=== PATIENT | male | born 1965 | race Caucasian/White ===

== ENCOUNTER 2017-12-13 10:33 | Outpatient (CLI) | payer MEDICAID ==
[2017-12-13 17:47] LABS: BASOPHILS % (AUTO) 0.5 %; EOSINOPHILS # (AUTO) 0.1 10^3/uL (0.0-0.7); EOSINOPHILS % (AUTO) 1.1 %; HGB - HEMOGLOBIN 14.4 g/dL (14.0-18.0); LYMPHOCYTES # (AUTO) 1.3 10^3/uL (1.5-3.5); LYMPHOCYTES % (AUTO) 26.2 %; MEAN CORPUSCULAR HEMOGLOBIN 33.8 pg (27.0-31.0); MEAN CORPUSCULAR HGB CONC 34.1 g/dL (32.0-36.0); MEAN CORPUSCULAR VOLUME 99.2 fL (80.0-94.0); MEAN PLATELET VOLUME 8.5 fL (7.4-11.4); MONOCYTES # (AUTO) 0.4 10^3/uL (0.0-1.0); NEUTROPHILS # (AUTO) 3.1 10^3/uL (1.5-6.6); NEUTROPHILS % (AUTO) 63.2 %; PLT - PLATELET COUNT 264 10^3/uL (130-450); RED BLOOD COUNT 4.26 10^6/uL (4.70-6.10); RED CELL DISTRIBUTION WIDTH 13.8 % (12.0-15.0); WHITE BLOOD COUNT 4.8 x10^3/uL (4.8-10.8)
[2017-12-13 18:35] LABS: ALBUMIN 4.5 g/dL (3.2-5.5); ALBUMIN/GLOBULIN RATIO 1.4 (1.0-2.2); ALKALINE PHOSPHATASE 52 IU/L (42-121); ALT ALANINE AMINOTRANSFERASE 44 IU/L (10-60); AST ASPARTATE AMINOTRANSFERASE 31 IU/L (10-42); BUN - BLOOD UREA NITROGEN 15 mg/dL (6-20); CALCIUM 9.4 mg/dL (8.5-10.3); CARBON DIOXIDE - CO2 26 mmol/L (21-32); CHLORIDE 102 mmol/L (101-111); CHOL/HDL RATIO 3.3 (<5.0); CHOLESTEROL 242 mg/dL; CREATININE 0.9 mg/dL (0.6-1.2); GFR - MDRD 89 (>89); GLUCOSE 107 mg/dL (70-100); HDL CHOLESTEROL 73 mg/dL; LDL CHOLESTEROL,CALCULATED 154 mg/dL; LDL/HDL RATIO 2.1 (<3.6); SODIUM 138 mmol/L (135-145); TOTAL PROTEIN 7.7 g/dL (6.7-8.2); VLDL CHOLESTEROL 15 mg/dL
== END 2017-12-13 10:34 | disposition home or self-care (01) ==
LOC: LAB.F 10:33
PROVIDERS: ATTEND Family Medicine
DX: F10.20 Alcohol dependence, uncomplicated (principal); R07.9 Chest pain, unspecified
CPT/HCPCS: 36415; 80053; 80061; 83721; 84443; 85025

== ENCOUNTER 2018-04-10 15:58 | Outpatient (CLI) | payer MEDICAID ==
--- NOTE | 2018-04-10 20:20 | Ultrasound Report ---
Reason: KNEE PAIN,RIGHT Procedure Date: 04/10/2018 Accession Number: [id number] / [id number] Procedure: US - Ext Limited Non Vascular CPT Code: FULL RESULT: EXAM: RIGHT UPPER EXTREMITY ULTRASOUND - LIMITED EXAM DATE: 04/10/2018 05:21 PM. CLINICAL HISTORY: Right knee pain and swelling. COMPARISON: None. TECHNIQUE: Real-time scanning was performed with static images and cine loops obtained. FINDINGS: Large anechoic fluid collection lateral, anterior, and medial to the knee, measuring up to 1.8 cm thick. IMPRESSION: Large anechoic fluid collection lateral, anterior, and medial to the knee, suspect representing a large knee effusion. RADIA
== END 2018-04-10 15:59 | disposition home or self-care (01) ==
LOC: DI 15:58
PROVIDERS: ATTEND Family Medicine
DX: M25.561 Pain in right knee (principal); M25.461 Effusion, right knee
CPT/HCPCS: 76882

== ENCOUNTER 2018-04-11 14:21 | Outpatient (CLI) | payer MEDICAID ==
--- NOTE | 2018-04-11 14:53 | XRAY Report ---
Reason: ELBOW JOINT PAIN,LEFT,KNEE PAIN RIGHT Procedure Date: 04/11/2018 Accession Number: [id number] / [id number] Procedure: XR - Knee 3 View RT CPT Code: FULL RESULT: EXAM: RIGHT KNEE RADIOGRAPHY EXAM DATE: 04/11/2018 02:42 PM. CLINICAL HISTORY: Acute right knee pain and swelling status post trauma. COMPARISON: None. TECHNIQUE: 3 views. FINDINGS: Bones: Normal bone mineralization. No fractures or bone lesions. Joints: Moderate suprapatellar right knee joint effusion. No subluxation. No significant degenerative changes. Soft Tissues: Soft tissue swelling anterior to the patella and patellar tendon. IMPRESSION: 1. Anterior right knee soft tissue swelling with no fracture or subluxation. 2. Moderate right knee joint effusion. RADIA
--- NOTE | 2018-04-11 14:57 | XRAY Report ---
Reason: ELBOW JOINT PAIN,LEFT,KNEE PAIN RIGHT Procedure Date: 04/11/2018 Accession Number: [id number] / [id number] Procedure: XR - Elbow 2 View LT CPT Code: FULL RESULT: EXAM: LEFT ELBOW RADIOGRAPHY EXAM DATE: 04/11/2018 02:42 PM. CLINICAL HISTORY: Acute left elbow pain status post trauma. COMPARISON: None. TECHNIQUE: 2 views. FINDINGS: Bones: Normal bone mineralization. No fractures or bone lesions. Joints: Normal. No effusion. No subluxation. Soft Tissues: Normal. No soft tissue swelling. IMPRESSION: Normal left elbow radiography. RADIA
== END 2018-04-11 14:22 | disposition home or self-care (01) ==
LOC: DI 14:21
PROVIDERS: ATTEND Family Medicine
DX: M25.561 Pain in right knee (principal); M25.461 Effusion, right knee; M25.522 Pain in left elbow

== ENCOUNTER 2018-06-09 13:57 | Outpatient (CLI) | payer MEDICAID ==
[2018-06-09 18:20] LABS: ALBUMIN 4.7 g/dL (3.2-5.5); ALBUMIN/GLOBULIN RATIO 1.7 (1.0-2.2); CALCIUM 9.2 mg/dL (8.5-10.3); CREATININE 0.9 mg/dL (0.6-1.2); TOTAL PROTEIN 7.4 g/dL (6.7-8.2)
[2018-06-09 19:07] LABS: HB2 TOTAL 15.8 g/dL; HEMOGLOBIN A1C 0.55 g/dL; HEMOGLOBIN A1C % 5.3 % (4.6-6.2)
== END 2018-06-09 13:58 | disposition home or self-care (01) ==
LOC: LAB.F 13:57
PROVIDERS: ATTEND Internal Medicine
DX: R73.01 Impaired fasting glucose (principal)
CPT/HCPCS: 36415; 80053; 83036

== ENCOUNTER 2019-05-19 07:57 | Outpatient (CLI) | payer MEDICAID ==
--- NOTE | 2019-05-19 10:15 | MRI Report ---
Reason: KNEE PAIN RT Procedure Date: 05/19/2019 Accession Number: [id number] / [id number] Procedure: MRI - Knee RT W/O CPT Code: Final Report FULL RESULT: EXAM: RIGHT KNEE MRI WITHOUT CONTRAST EXAM DATE: 05/19/2019 08:44 AM. CLINICAL HISTORY: Right knee pain medially. COMPARISON: 04/11/2018 radiographs. TECHNIQUE: Multiplanar, multisequence T1-weighted and fluid-sensitive sequences of the knee without contrast. Other: None. FINDINGS: Bones: Minimal tricompartmental osteophytes are present. No marrow edema. Reactive periarticular marrow edema is in the central patella. Articular Cartilage: Severe cartilage thinning is at the lateral patellar facet. There is mild cartilage thinning and surface irregularity at the medial patella. Moderate cartilage thinning and surface irregularity is at the lateral portion of the trochlea. Medial Meniscus: The medial meniscus is intact. Lateral Meniscus: The lateral meniscus is intact. Cruciate Ligaments: The anterior and posterior cruciate ligaments are intact. Collateral Ligaments: The medial collateral and lateral collateral ligamentous structures are intact. Tendons: The quadriceps, patellar, semimembranosus, and popliteus tendons are unremarkable. Musculature: No edema or fatty atrophy. Other: There is a mild knee effusion. No popliteal cyst. No loose bodies. The medial and lateral retinacula are intact. Prepatellar subcutaneous edema is present. Edema is in Hoffa's fat pad. IMPRESSION: Mild osteoarthritis. RADIA
== END 2019-05-19 07:58 | disposition home or self-care (01) ==
LOC: DI 07:57
PROVIDERS: ATTEND Orthopaedic Surgery Sports Medicine
DX: M17.11 Unilateral primary osteoarthritis, right knee (principal)

== ENCOUNTER 2020-11-12 08:48 | Outpatient (CLI) | payer MEDICAID ==
[2020-11-12 15:09] LABS: ALBUMIN 4.5 g/dL (3.2-5.5); ALBUMIN/GLOBULIN RATIO 1.6 (1.0-2.2); ALKALINE PHOSPHATASE 52 IU/L (42-121); ALT ALANINE AMINOTRANSFERASE 21 IU/L (10-60); AST ASPARTATE AMINOTRANSFERASE 18 IU/L (10-42); BILIRUBIN,TOTAL 0.9 mg/dL (0.2-1.0); BUN - BLOOD UREA NITROGEN 13 mg/dL (6-20); CALCIUM 9.3 mg/dL (8.5-10.3); CARBON DIOXIDE - CO2 27 mmol/L (21-32); CHLORIDE 107 mmol/L (101-111); CHOL/HDL RATIO 4.9 (<5.0); CHOLESTEROL 257 mg/dL; CREATININE 0.9 mg/dL (0.6-1.2); GFR - MDRD 88 (>89); GLUCOSE 95 mg/dL (70-100); HDL CHOLESTEROL 52 mg/dL; LDL CHOLESTEROL,CALCULATED 188 mg/dL; LDL/HDL RATIO 3.6 (<3.6); POTASSIUM 3.9 mmol/L (3.5-5.0); SODIUM 143 mmol/L (135-145); TOTAL PROTEIN 7.3 g/dL (6.7-8.2); TRIGLYCERIDES 87 mg/dL; VLDL CHOLESTEROL 17 mg/dL
== END 2020-11-12 08:49 | disposition home or self-care (01) ==
LOC: LAB.S 08:48
PROVIDERS: ATTEND Physician Assistant
DX: Z00.00 Encounter for general adult medical examination without abnormal findings (principal); Z80.42 Family history of malignant neoplasm of prostate; R73.01 Impaired fasting glucose; F10.20 Alcohol dependence, uncomplicated; I10 Essential (primary) hypertension
CPT/HCPCS: 36415; 80053; 80061; 83721; 84153

== ENCOUNTER 2021-10-08 08:00 | Outpatient (CLI) | payer MEDICAID ==
--- NOTE | 2021-10-08 13:38 | XRAY Report ---
PROCEDURE: Cervical Spine 2 View INDICATIONS: CERVICAL RADICULOPATHY; NECK PAIN TECHNIQUE: 3 view(s) of the cervical spine were acquired. COMPARISON: None. FINDINGS: Bones: There is mild reversal normal cervical spine curvature. No fractures or dislocations to the T 1 level. The lateral masses of C1 appear intact on the odontoid view. No suspicious bony lesions. Mild C3-C4, C4-C5 and C5-C6 degenerative disease. Mild C5-C6, C6-C7 and C7-T1 facet hypertrophy. Mild bilateral C3-C4, C4-C5 and C5-C6 uncovertebral hypertrophy. Soft tissues: No prevertebral soft tissue swelling. IMPRESSION: 1. Multilevel degenerative disc disease. 2. Multilevel facet and uncovertebral arthropathy. 3. No fracture. No acute osseous lesion. If there is continued clinical concern for pathology, then M RI should be considered for further evaluation. Reviewed by: Kezia Newberry MD, PhD on 10/08/2021 1:36 PM PDT Approved by: Kezia Newberry MD, PhD on 10/08/2021 1:36 PM PDT Station ID: [id number]
== END 2021-10-08 23:59 | disposition home or self-care (01) ==
LOC: DI.S 08:00
PROVIDERS: ATTEND Registered Nurse
DX: M47.22 Other spondylosis with radiculopathy, cervical region (principal); M47.23 Other spondylosis with radiculopathy, cervicothoracic region

== ENCOUNTER 2023-10-07 13:33 | Emergency (ER) | payer MEDICAID ==
[2023-10-07 13:59] VITALS: BP 187/112; O2SAT 97
== END 2023-10-07 15:21 | disposition left against medical advice (07) ==
LOC: ED 13:33
DX: R20.2 Paresthesia of skin (principal); Z53.21 Procedure and treatment not carried out due to patient leaving prior to being seen by health care provider

== ENCOUNTER 2023-10-10 11:49 | Outpatient (CLI) | payer MEDICAID ==
[2023-10-10 12:10] LABS: BASOPHILS % (AUTO) 0.3 %; EOSINOPHILS % (AUTO) 0.1 %; HCT - HEMATOCRIT 45.5 % (42.0-52.0); HGB - HEMOGLOBIN 15.2 g/dL (14.0-18.0); LYMPHOCYTES # (AUTO) 1.9 10^3/uL (1.5-3.5); LYMPHOCYTES % (AUTO) 18.3 %; MEAN CORPUSCULAR HEMOGLOBIN 32.8 pg (27.0-31.0); MEAN CORPUSCULAR HGB CONC 33.4 g/dL (32.0-36.0); MEAN CORPUSCULAR VOLUME 98.3 fL (80.0-94.0); MONOCYTES # (AUTO) 0.7 10^3/uL (0.0-1.0); MONOCYTES % (AUTO) 6.9 %; NEUTROPHILS # (AUTO) 7.8 10^3/uL (1.5-6.6); PLT - PLATELET COUNT 327 10^3/uL (130-450); RED BLOOD COUNT 4.63 10^6/uL (4.70-6.10); RED CELL DISTRIBUTION WIDTH 13.1 % (12.0-15.0); WHITE BLOOD COUNT 10.5 x10^3/uL (4.8-10.8)
[2023-10-10 12:27] LABS: ALBUMIN 4.6 g/dL (3.2-5.5); ALBUMIN/GLOBULIN RATIO 2.1 (1.0-2.2); ALKALINE PHOSPHATASE 45 IU/L (42-121); ALT ALANINE AMINOTRANSFERASE 54 IU/L (10-60); AST ASPARTATE AMINOTRANSFERASE 30 IU/L (10-42); BILIRUBIN,TOTAL 0.5 mg/dL (0.2-1.0); BUN - BLOOD UREA NITROGEN 10 mg/dL (6-20); CALCIUM 9.6 mg/dL (8.5-10.3); CARBON DIOXIDE - CO2 28 mmol/L (21-32); CHLORIDE 102 mmol/L (101-111); CREATININE 0.8 mg/dL (0.6-1.3); CRP - C-REACTIVE PROTEIN < 0.5 mg/dL (<0.5); GFR - MDRD 100 (>89); GLUCOSE 114 mg/dL (74-104); POTASSIUM 3.7 mmol/L (3.5-4.5); SODIUM 137 mmol/L (135-145); TOTAL PROTEIN 6.8 g/dL (6.4-8.9)
[2023-10-10 20:34] LABS: ESTIMATED AVERAGE GLUCOSE 114 mg/dL (70-100); HEMOGLOBIN A1c% 5.6 % (4.27-6.07)
== END 2023-10-10 11:50 | disposition home or self-care (01) ==
LOC: LAB 11:49
PROVIDERS: ATTEND Registered Nurse
DX: F10.11 Alcohol abuse, in remission (principal); M54.2 Cervicalgia; R51.9 Headache, unspecified; R20.2 Paresthesia of skin; R03.0 Elevated blood-pressure reading, without diagnosis of hypertension
CPT/HCPCS: 36415; 80053; 82607; 82746; 83036; 84443; 85025; 85651; 86140

== ENCOUNTER 2023-12-10 12:49 | Outpatient (CLI) | payer MEDICAID ==
--- NOTE | 2023-12-10 14:04 | XRAY Report ---
PROCEDURE: Hips w/Pelvis 2-3V BL INDICATIONS: BILATERAL HIP PAIN TECHNIQUE: 2 view(s) of the hip were acquired. COMPARISON: None FINDINGS: Bones: No fractures or dislocations. No suspicious bony lesions. The visualized pelvic ring appear s intact. Soft tissues: No suspicious soft tissue calcifications or masses. IMPRESSION: Unremarkable hip radiographs Reviewed by: Dm Mayfield MD on 12/10/2023 1:03 PM AKDT Approved by: Dm Mayfield MD on 12/10/2023 1:03 PM AKDT Station ID: [id number]
--- NOTE | 2023-12-10 14:06 | XRAY Report ---
PROCEDURE: Lumbar Spine 2-3V INDICATIONS: BILATERAL SCIATICA TECHNIQUE: 3 view(s) of the lumbar spine were acquired. COMPARISON: None. FINDINGS: Bones: Vertebral body height and alignment is maintained. No suspicious bony lesions. Lower lumbar s pine facet arthropathy Soft tissues: Overlying bowel gas pattern is normal. No suspicious soft tissue calcifications. IMPRESSION: Facet arthropathy particularly lower lumbar spine Reviewed by: Dm Mayfield MD on 12/10/2023 1:04 PM AKPORTER Approved by: Dm Mayfield MD on 12/10/2023 1:04 PM AKDT Station ID: [id number]
== END 2023-12-10 12:50 | disposition home or self-care (01) ==
LOC: DI 12:49
PROVIDERS: ATTEND Nurse Practitioner Family
DX: M47.816 Spondylosis without myelopathy or radiculopathy, lumbar region (principal); M25.551 Pain in right hip; M25.552 Pain in left hip

== ENCOUNTER 2023-12-13 16:22 | Outpatient (CLI) | payer MEDICAID ==
--- NOTE | 2023-12-13 20:30 | XRAY Report ---
PROCEDURE: Cervical Spine 2-3V INDICATIONS: CERVICAL RADICULOPATHY TECHNIQUE: 3 view(s) of the cervical spine were acquired. COMPARISON: 10/08/2021. FINDINGS: Bones: No fractures or dislocations to the C7-T1 level. Degenerative endplate changes are noted at C3-4 through C5-6 levels. The lateral masses of C1 appear intact on the odontoid view. No suspicious bony lesions. Soft tissues: No prevertebral soft tissue swelling. IMPRESSION: No displaced fracture or traumatic subluxation. Degenerative disc disease throughout cervical spine as above, unchanged or slightly progressed compar ed to 2021 study. Reviewed by: Will Mckeon MD on 12/13/2023 8:29 PM PDT Approved by: Will Mckeon MD on 12/13/2023 8:29 PM PDT Station ID: [id number]
== END 2023-12-13 16:23 | disposition home or self-care (01) ==
LOC: DI 16:22
PROVIDERS: ATTEND Nurse Practitioner Family
DX: M50.31 Other cervical disc degeneration, high cervical region (principal)